=== PATIENT | male | born 2000 ===

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

== ENCOUNTER 2018-05-06 14:57 | Outpatient (CLI) | payer MEDICAID, SELFPAY ==
[2018-05-06 15:42] LABS: Abs Immature Grans 0.03 k/cumm (0.0-0.09); Absolute Basophil Count 0.02 k/cumm (0.0-0.2); Absolute Eosinophil Count 0.37 k/cumm (0.0-0.7); Absolute Lymphocyte Count 1.73 k/cumm (1.2-3.4); Absolute Monocyte Count 0.71 k/cumm (0.11-0.7); Absolute Neutrophil Count 7.47 k/cumm (1.2-6.7); Basophils % 0.2; Eosinophils % 3.6; HCT 46.3 % (40.0-50.0); HGB 15.4 g/dL (13.5-17.5); Immature Grans % 0.3; Lymphocytes % 16.7; Mean Corp. HGB Concentration 33.3 g/dL (32.0-36.0); Mean Corpuscular Hemoglobin 28.6 pg (27.0-33.0); Mean Corpuscular Volume 86.1 fL (80-95); Mean Platelet Volume 10.5 fL (8.0-11.0); Monocytes % 6.9; Neutrophils % 72.3; Platelet Count 319 x1000/uL (130-400); RBC 5.38 m/cumm (4.50-6.00); RBC Distribution Width 13.4 % (11.8-14.1); White Blood Cell Count 10.33 k/cumm (4.4-10.8)
== END 2018-05-06 15:17 ==
PROVIDERS: PCP Family Medicine; Visit Provider Pediatrics
DX: N18.3 Chronic kidney disease, stage 3 (moderate) (principal); E26.81 Bartter's syndrome
CPT/HCPCS: 36415; 85025

== ENCOUNTER 2018-05-06 15:01 | Outpatient (REF) | payer MEDICAID, SELFPAY ==
[2018-05-06 17:12] LABS: PROTEIN 115.9 mg/dL
[2018-05-06 17:31] LABS: COMMENT (LAB VIEW ONLY) 33.73 mg/dL; Prot/Crea Ur Ratio 3.43
== END 2018-05-06 15:21 ==
LOC: LBN 15:01
PROVIDERS: PCP Family Medicine; Visit Provider Pediatrics
DX: E26.81 Bartter's syndrome (principal)
CPT/HCPCS: 82565; 84156